=== PATIENT | female | born 1975 | race Caucasian/White ===

== ENCOUNTER 2019-02-10 13:02 | Emergency (ER) | payer OTHER ==
[2019-02-10] MEDS ORDERED: IBUPROFEN 200 MG TAB PO ONE (13:49)
[2019-02-10] MEDS ORDERED: HYDROCODONE/APAP 7.5/325 MG TAB ONE (13:49)
--- NOTE | 2019-02-10 15:31 | EDPHYS ---
Physician Documentation [facility] Name: Meg Perez Age: 43 yrs Sex: Female : 1975 Arrival Date: 02/10/2019 Time: 13:04 Bed 10 Private MD: ED Physician Bebeto Sinha HPI: 02/10 14:12 This 43 yrs old Female presents to ER via Ambulatory with complaints of Fall jr8 Injury, Hand Pain, Knee Pain, Nose Pain. 14:12 Onset: The symptoms/episode began/occurred acutely, today. Severity of symptoms: At jr8 their worst the symptoms were moderate, in the emergency department the symptoms are unchanged. The patient has not experienced similar symptoms in the past. The patient has not recently seen a physician. Patient stated that she tripped over her dogs. Tried to catch herself but injured her left hand and hit her face on a oral surgery technician. Stated that she did not lose consciousness. Pain currently to nose and left hand . 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 - Social history:: Smoking status: Patient/guardian denies using tobacco. - Immunization history: Last tetanus immunization: - up to date. - Ebola Screening: : Patient denies travel to an Ebola-affected area in the 21 days before illness onset. ROS: 14:12 Eyes: Negative for injury, pain, redness, and discharge, Neck: Negative for injury, jr8 pain, and swelling, Cardiovascular: Negative for chest pain, palpitations, and edema, Respiratory: Negative for shortness of breath, cough, wheezing, and pleuritic chest pain, Abdomen/GI: Negative for abdominal pain, nausea, vomiting, diarrhea, and constipation, Back: Negative for injury and pain, Skin: Negative for injury, rash, and discoloration, Neuro: Negative for headache, weakness, numbness, tingling, and seizure. 14:12 ENT: Positive for injury or acute deformity, abrasion, contusion, nose. 14:12 MS/extremity: Positive for ecchymosis, pain, swelling, tenderness, of the CMC left thumb, left knee. Exam: 14:12 Head/Face: Normocephalic, atraumatic. Eyes: Pupils equal round and reactive to light, jr8 extra-ocular motions intact. Lids and lashes normal. Conjunctiva and sclera are non-icteric and not injected. Cornea within normal limits. Periorbital areas with no swelling, redness, or edema. ENT: Nares patent. No nasal discharge, no septal abnormalities noted. Mild dried blood both nares. Negative for septal hematoma. Small abrasion to external nose with swelling and bruising. No deviation of septum. Tympanic membranes are normal and external auditory canals are clear. Oropharynx with no redness, swelling, or masses, exudates, or evidence of obstruction, uvula midline. Mucous membranes moist. Neck: Trachea midline, no thyromegaly or masses palpated, and no cervical lymphadenopathy. Supple, full range of motion without nuchal rigidity, or vertebral point tenderness. No Meningismus. Chest/axilla: Normal chest wall appearance and motion. Nontender with no deformity. No lesions are appreciated. Cardiovascular: Regular rate and rhythm with a normal S1 and S2. No gallops, murmurs, or rubs. Normal PMI, no JVD. No pulse deficits. Respiratory: Lungs have equal breath sounds bilaterally, clear to auscultation and percussion. No rales, rhonchi or wheezes noted. No increased work of breathing, no retractions or nasal flaring. Abdomen/GI: Soft, non-tender, with normal bowel sounds. No distension or tympany. No guarding or rebound. No evidence of tenderness throughout. Back: No spinal tenderness. No costovertebral tenderness. Full range of motion. Skin: Warm, dry with normal turgor. Normal color with no rashes, no lesions, and no evidence of cellulitis. Neuro: Awake and alert, GCS 15, oriented to person, place, time, and situation. Cranial nerves II-XII grossly intact. Motor strength 5/5 in all extremities. Sensory grossly intact. Cerebellar exam normal. Normal gait. 14:12 Musculoskeletal/extremity: Extremities: grossly normal except: noted in the left hand: Mild tenderness and bruising to condon aspect left hand near CMC joint, ROM: intact in all extremities, Circulation is intact in all extremities. Sensation intact. mild abrasion to left knee without tenderness . Vital Signs: 13:27 BP 141 / 88; Pulse 77; Resp 18; Temp 97.6; Pulse Ox 100% on R/A; Weight 86.18 kg (R); aj1 Height 5 ft. 5 in. (165.10 cm) (R); Pain 5/10; 14:30 BP 136 / 86; Pulse 75; Resp 15; Pulse Ox 99% on R/A; hb 14:30 BP 142 / 82; Pulse 88; Resp 16; Pulse Ox 99% on R/A; hb 13:27 Body Mass Index 31.62 (86.18 kg, 165.10 cm) aj1 [place] Coma Score: 13:30 Eye Response: spontaneous(4). Verbal Response: oriented(5). Motor Response: obeys hb commands(6). Total: 15. Trauma Score (Adult): 13:30 Eye Response: spontaneous(1); Verbal Response: oriented(1); Motor Response: obeys hb commands(2); Systolic BP: > 89 mm Hg(4); Respiratory Rate: 10 to 29 per min(4); Irene Score: 15; Trauma Score: 12 14:26 Eye Response: spontaneous(1); Verbal Response: oriented(1); Motor Response: obeys hb commands(2); Systolic BP: > 89 mm Hg(4); Respiratory Rate: 10 to 29 per min(4); Irene Score: 15; Trauma Score: 12 15:15 Eye Response: spontaneous(1); Verbal Response: oriented(1); Motor Response: obeys hb commands(2); Systolic BP: > 89 mm Hg(4); Respiratory Rate: 10 to 29 per min(4); Irene Score: 15; Trauma Score: 12 MDM: 13:30 Patient medically screened. jr8 15:28 Data reviewed: vital signs, nurses notes, radiologic studies, plain films. Data jr8 interpreted: Pulse oximetry: on room air is 100 %. Interpretation: normal. Counseling: I had a detailed discussion with the patient and/or guardian regarding: the historical points, exam findings, and any diagnostic results supporting the discharge/admit diagnosis, radiology results, the need for outpatient follow up, a orthopedic surgeon, to return to the emergency department if symptoms worsen or persist or if there are any questions or concerns that arise at home. 02/10 13:41 Order name: XRAY Hand LEFT 3 View jr8 02/10 15:09 Order name: Thumb Spica Splint; Complete Time: 15:44 jr8 Administered Medications: 13:53 Drug: Ibuprofen 600 mg Route: PO; hb 14:45 Follow up: Response: No adverse reaction; Pain is decreased hb 13:53 Drug: [place] (7.5 mg-325 mg) 1 tabs Route: PO; hb 14:45 Follow up: Response: No adverse reaction; Pain is decreased hb Disposition: 17:31 Co-signature as Attending Physician, Bebeto Sinha MD. rn Disposition: 02/10/19 15:30 Discharged to Home. Impression: Fracture of trapezium [larger multangular]. - Condition is Stable. - Discharge Instructions: Wrist Fracture Treated With Immobilization. - Prescriptions for Ibuprofen 600 mg Oral Tablet - take 1 tablet by ORAL route every 6 hours As needed take with food; 30 tablet. Tylenol- Codeine #3 300-30 mg Oral Tablet - take 2 tablets by ORAL route every 6 hours As needed; 20 tablet. - Medication Reconciliation Form, Thank You Letter, Antibiotic Education, Prescription Opioid Use form. - Follow up: Juan Ramon Vargas MD; When: 1 - 2 days; Reason: Recheck today's complaints, Continuance of care, Re-evaluation by your physician. - Problem is new. - Symptoms have improved. Signatures: Dispatcher [employer] EDMS Caitlyn Pimentel RN RN aj1 Bebeto Sinha MD MD rn Roszak, Josh, PA PA jr8 Emma Bernard RN RN Corrections: (The following items were deleted from the chart) 15:56 15:30 02/10/2019 15:30 Discharged to Home. Impression: Fracture of trapezium [larger hb multangular]. Condition is Stable. Forms are Medication Reconciliation Form, Thank You Letter, Antibiotic Education, Prescription Opioid Use. Follow up: Juan Ramon Vargas; When: 1 - 2 days; Reason: Recheck today's complaints, Continuance of care, Re-evaluation by your physician. Problem is new. Symptoms have improved. jr8
--- NOTE | 2019-02-10 15:31 | ER ---
Nurse's Notes [facility] Name: Meg Perez Age: 43 yrs Sex: Female : 1975 Arrival Date: 02/10/2019 Time: 13:04 Bed 10 Private MD: Diagnosis: Fracture of trapezium [larger multangular] Presentation: 02/10 13:23 Presenting complaint: Patient states: "I'm not sure if my nose is broken or not and I aj1 might need to check out my hand because its kind of hurting in my thumb. I was babysitting my son's dog and I have 3 of my own and they were running around and they tripped me and I hit my head on a printed circuit board layout designer and I heard a crunch and I had blood coming out of my nose" Patient reports that she fell at around 12:00 today. Denies LOC, vomiting. Transition of care: patient was not received from another setting of care. Onset of symptoms was February 10, 2019 at 12:00. Risk Assessment: Do you want to hurt yourself or someone else? Patient reports no desire to harm self or others. Initial Sepsis Screen: Does the patient meet any 2 criteria? No. Patient's initial sepsis screen is negative. Does the patient have a suspected source of infection? No. Patient's initial sepsis screen is negative. Care prior to arrival: None. 13:23 Method Of Arrival: Ambulatory aj1 13:23 Acuity: TONY 4 aj1 13:30 Mechanism of Injury: Fall from standing position. Trauma event details: Injury occurred hb in the [facility], Injury occurred: at home. Triage Assessment: 13:27 General: Appears in no apparent distress. uncomfortable, Behavior is calm, cooperative, aj1 appropriate for age. Pain: Complains of pain in forehead, dorsal aspect of proximal phalanx of left thumb, palmar aspect of proximal phalanx of left thumb and nose Pain currently is 5 out of 10 on a pain scale. Neuro: Level of Consciousness is awake, alert, obeys commands, Oriented to person, place, time, situation, Gait is steady, Speech is normal, Facial symmetry appears normal. Cardiovascular: Patient's skin is warm and dry. Respiratory: Airway is patent Respiratory effort is even, unlabored, Respiratory pattern is regular, symmetrical. GI: No signs and/or symptoms were reported involving the gastrointestinal system. : No signs and/or symptoms were reported regarding the genitourinary system. Derm: Skin is flushed. Musculoskeletal: Range of motion: limited in IP of left thumb and MCP of left thumb. Injury Description: Abrasion sustained to bridge of nose. 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 aj1 Trauma Activation: Not Applicable Physician: ED Physician; Name: ; Notified At: ; Arrived At: Physician: General Surgeon; Name: ; Notified At: ; Arrived At: Physician: Radiology; Name: ; Notified At: ; Arrived At: Physician: Respiratory; Name: ; Notified At: ; Arrived At: Physician: Lab; Name: ; Notified At: ; Arrived At: Historical: - Allergies: 13:27 No Known Allergies; aj1 - Home Meds: 13:27 "something the cad intern gave me for breakout, I think it used to used as a blood aj1 pressure medicine" [Active]; - PMHx: 13:27 None; aj1 - PSHx: 13:27 thoracic outlet; aj1 - Immunization history:: Last tetanus immunization: unknown. - Social history:: Smoking status: Patient/guardian denies using tobacco. - Immunization history: Last tetanus immunization: - up to date. - Ebola Screening: : Patient denies travel to an Ebola-affected area in the 21 days before illness onset. Screenin:45 Nutritional screening: No deficits noted. Fall Risk None identified. hb 14:26 Abuse screen: Denies threats or abuse. Denies injuries from another. Tuberculosis hb screening: No symptoms or risk factors identified. Primary Survey: 13:30 NO uncontrolled hemorrhage observed. A: The patient is alert. No supplemental oxygen in hb use on arrival. Breathing/Chest: Respiratory pattern: regular, Respiratory effort: spontaneous, unlabored, Chest inspection: symmetrical rise and fall of the chest. Circulation: Skin color: pink, Skin temperature: warm, dry. Disability Alert. Exposure/Environment: There is no evidence of uncontrolled external bleeding. 14:25 Reassessment Airway Airway Patent Breathing/Chest Respiratory pattern Regular hb Respiratory effort Spontaneous Unlabored Chest inspection Symmetrical Circulation Color [place] Temperature Warm Dry Disability Alert. 15:15 Reassessment Airway Airway Patent Breathing/Chest Respiratory pattern Regular hb Respiratory effort Spontaneous Unlabored Chest inspection Symmetrical Circulation Color [place] Temperature Warm Dry Disability Alert. Secondary Survey: 14:25 HEENT: Nose: mild swelling and bruising noted to bridge of nose. Gastrointestinal: No hb deficits noted. : No signs and/or symptoms were reported regarding the genitourinary system. Musculoskeletal: Reports left wrist pain. Assessment: 13:45 General: Appears in no apparent distress. Behavior is calm, cooperative. Pain: Pain hb currently is 5 out of 10 on a pain scale. Neuro: Level of Consciousness is awake, alert, obeys commands, Oriented to person, place, time, situation. EENT: Reports mild swelling and bruising noted to bridge of nose. Cardiovascular: Capillary refill < 3 seconds Patient's skin is warm and dry. Respiratory: Airway is patent Respiratory effort is even, unlabored, Respiratory pattern is regular, symmetrical. GI: No signs and/or symptoms were reported involving the gastrointestinal system. : No signs and/or symptoms were reported regarding the genitourinary system. Derm: No signs and/or symptoms reported regarding the dermatologic system. Musculoskeletal: Reports left wrist pain. 14:25 Reassessment: Patient appears in no apparent distress at this time. Patient and/or hb family updated on plan of care and expected duration. Pain level reassessed. Patient is alert, oriented x 3, equal unlabored respirations, skin warm/dry/pink. 15:15 Reassessment: Patient appears in no apparent distress at this time. Patient and/or hb family updated on plan of care and expected duration. Pain level reassessed. Patient is alert, oriented x 3, equal unlabored respirations, skin warm/dry/pink. Vital Signs: 13:27 BP 141 / 88; Pulse 77; Resp 18; Temp 97.6; Pulse Ox 100% on R/A; Weight 86.18 kg (R); aj1 Height 5 ft. 5 in. (165.10 cm) (R); Pain 5/10; 14:30 BP 136 / 86; Pulse 75; Resp 15; Pulse Ox 99% on R/A; hb 14:30 BP 142 / 82; Pulse 88; Resp 16; Pulse Ox 99% on R/A; hb 13:27 Body Mass Index 31.62 (86.18 kg, 165.10 cm) aj1 [place] Coma Score: 13:30 Eye Response: spontaneous(4). Verbal Response: oriented(5). Motor Response: obeys hb commands(6). Total: 15. Trauma Score (Adult): 13:30 Eye Response: spontaneous(1); Verbal Response: oriented(1); Motor Response: obeys hb commands(2); Systolic BP: > 89 mm Hg(4); Respiratory Rate: 10 to 29 per min(4); Irene Score: 15; Trauma Score: 12 14:26 Eye Response: spontaneous(1); Verbal Response: oriented(1); Motor Response: obeys hb commands(2); Systolic BP: > 89 mm Hg(4); Respiratory Rate: 10 to 29 per min(4); Kell Score: 15; Trauma Score: 12 15:15 Eye Response: spontaneous(1); Verbal Response: oriented(1); Motor Response: obeys hb commands(2); Systolic BP: > 89 mm Hg(4); Respiratory Rate: 10 to 29 per min(4); Kell Score: 15; Trauma Score: 12 ED Course: 13:04 Patient arrived in ED. as 13:25 Triage completed. aj1 13:27 Arm band placed on Patient placed in an exam room. aj1 13:30 James Smiley PA is PHCP. jr8 13:30 Bebeto Sinha MD is Attending Physician. jr8 13:30 Patient has correct armband on for positive identification. Call light in reach. hb 13:30 Patient maintains SpO2 saturation greater than 95% on room air. hb 13:30 Thermoregulation: warm blanket given to patient. hb 14:24 Emma Bernard, RN is Primary Nurse. hb 14:26 XRAY Hand LEFT 3 View In Process Unspecified. EDMS 15:29 Juan Ramon Vargas MD is Referral Physician. jr8 15:44 Orthoglass splint: Thumb spica splint applied on left forearm. lt1 15:55 No provider procedures requiring assistance completed. Patient did not have IV access hb during this emergency room visit. Administered Medications: 13:53 Drug: Ibuprofen 600 mg Route: PO; hb 14:45 Follow up: Response: No adverse reaction; Pain is decreased hb 13:53 Drug: [place] (7.5 mg-325 mg) 1 tabs Route: PO; hb 14:45 Follow up: Response: No adverse reaction; Pain is decreased hb Intake: 13:30 PO: 0ml; Total: 0ml. hb Output: 13:30 Urine: 0ml; Total: 0ml. hb Outcome: 15:30 Discharge ordered by . kia 15:55 Discharged to home ambulatory. hb 15:55 Condition: stable 15:55 Discharge instructions given to patient, Instructed on discharge instructions, follow up and referral plans. medication usage, Demonstrated understanding of instructions, follow-up care, medications, splint care, Prescriptions given X 2. 15:56 Patient's length of stay in the Emergency Department was greater than 2 hours. awaiting hb dispo and splint applicatrionPatient's length of stay extended due to 15:56 Patient left the ED. Signatures: Dispatcher [employer] EDMS Caitlyn Pimentel RN RN [email or web address] Nataliya Velasquez Josh, PA PA jr8 Emma Bernard, RN Geraldine Hood lt1
--- NOTE | 2019-02-10 16:23 | RAD REPORT ---
EXAM DESCRIPTION: RAD - Hand Left 3 View - 02/10/2019 2:26 pm CLINICAL HISTORY: Fall, left hand pain, pain primarily left thumb COMPARISON: None. FINDINGS: No fracture, dislocation or periosteal reaction noted. No foreign body or other soft tissu e abnormality. IMPRESSION: Negative left hand examination.
[2019-02-10 16:39] VITALS: TEMP 97.6
[2019-02-10 16:41] VITALS: BP 142/82; O2SAT 99
== END 2019-02-10 15:56 | disposition home or self-care (01) ==
LOC: ER 13:02
DX: S62.172A Displaced fracture of trapezium [larger multangular], left wrist, initial encounter for closed fracture (principal); W01.0XXA Fall on same level from slipping, tripping and stumbling without subsequent striking against object, initial encounter; Y93.89 Activity, other specified; Y92.9 Unspecified place or not applicable
CPT/HCPCS: 99284